=== PATIENT | male | born 1970 | race Caucasian/White ===

== ENCOUNTER 2019-05-16 09:59 | Emergency (ER) ==
[2019-05-16 10:05] VITALS: BP 208/127; TEMP 97.4; BMI 30.5
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
--- NOTE | 2019-05-16 11:42 | US ---
EXAM: SCROTAL ULTRASOUND HISTORY: Scrotal swelling FINDINGS: Scrotal ultrasound exam performed using real time mcallister-scale and color-flow Doppler imaging. The right testis measures 3.9 x 2.6 x 4.1 cm and the left measures 3.4 x 2.5 x 3.9 cm. Testes demo nstrated adequate blood flow and symmetric normal echogenicity with no intratesticular fluid collecti on or mass identified. There is a simple 4 mm right epididymal head cyst. Similar sized simple left epididymal head cyst. Bilateral hydroceles are present, large on the left and small to moderate on the right. The hydroceles appeared relatively simple. Incidental note of echogenic substance near t he left inguinal canal which could be related to a hernia. IMPRESSION: 1. No testicular fracture or injury identified. There are bilateral hydroceles which appear relativ destiny simple, small to moderate on the right and large on the left. 2. Simple tiny bilateral epididymal head cysts. 3. Cannot exclude left inguinal region hernia. Consider correlation with CT.
--- NOTE | 2019-05-16 13:49 | CT ---
EXAM: CT ABDOMEN AND PELVIS HISTORY: Left lower quadrant pain, hernia. Previous appendectomy. TECHNIQUE: CT abdomen and pelvis with intravenous contrast. Images were reconstructed using 5 mm se ction thickness. Reformations were prepared. FINDINGS: Liver is fatty. Spleen is within normal limits. No focal hepatic or splenic lesions are identified. Gallbladder, pancreas and adrenal glands appear normal. The right kidney and ureter appear normal. There is a heterogeneously enhancing mass of the inferior left kidney measuring approximately 8.2 x 9 .1 x 9.7 cm. Probable cyst also within the left renal cortex more superiorly at 18 mm. There is no hydronephrosis. There are a few small lymph nodes seen near the left renal hilum and also retroperit oneum which are indeterminate. Moderately severe atherosclerotic disease. Borderline aneurysmal caliber of the infrarenal aorta is present at 3 cm. Stomach is within normal limits. No appendix is identified. There is a large left inguinal hernia with a coronal neck and the inguinal fold of about 4.6 cm. The abdominal fat, porti on of the sigmoid colon and other stroma extend into the sac inferiorly which measures up to about 8. 8 x 8.7 cm axial dimension at the scrotal level. There is no evidence of bowel obstruction or kayy ulation. The distal colon has moderate diverticulosis. Mildly prominent fatty right inguinal canal. There is no ascites. The bones reveal relatively severe degenerative disc and facet disease of the lower spine. Lung bases demonstrate a partially imaged nodular opacity anteriorly on the right karl uring about 8 mm which could represent a nodule. No pneumoperitoneum is seen. IMPRESSION: 1. Malignant appearing left renal mass with a few small adjacent indeterminate lymph nodes. There i s a possible right lung base nodule. 2. Large left inguinal hernia. 3. Distal colon diverticulosis. 4. Fatty liver. 5. Atherosclerotic disease with borderline aneurysmal caliber of the infrarenal aorta at 3 cm.
== END 2019-05-16 14:58 | disposition home or self-care (01) ==
LOC: ED 09:59
DX: K40.90 Unilateral inguinal hernia, without obstruction or gangrene, not specified as recurrent (principal); N28.89 Other specified disorders of kidney and ureter; W22.8XXA Striking against or struck by other objects, initial encounter; R03.0 Elevated blood-pressure reading, without diagnosis of hypertension; F17.210 Nicotine dependence, cigarettes, uncomplicated
CPT/HCPCS: 36415; 80053; 85025; 99283